=== PATIENT | female | born 1990 | race Caucasian/White ===

== ENCOUNTER 2016-10-23 10:29 | Emergency (ER) | payer SELFPAY ==
[~2016-10-23] VITALS: Ht 175.3 cm; Wt 79.5 kg
[2016-10-23 10:31] VITALS: BP 140/80; PULSE 94; RESP 20; TEMP 98.5; O2SAT 98
--- NOTE | 2016-10-23 11:11 | PD ---
HPI . left axilla abscess x 1 day Chief Complaint: left axilla abscess Time Seen by Provider: 11:11 Travel History International Travel<30 days: No Contact w/Intl Traveler<30days: No Traveled to known affect area: No History of Present Illness HPI 26-year-old female with history of IV drug user now in rehabilitation here with complaints of left axilla swelling. Patient tells me that all of a sudden yesterday she started developing some swelling under her left axilla. It is very tender to touch and red. She has a history of abscesses in the past and tells me that she had prior MRSA infection. She denies any fever or chills. She also has some small bumps starting to form in her right axilla. They're not as significant as the large lump in her left axilla. She denies any fever or chills. She has no other complaints. PFSH Past Medical History Respiratory: Yes (CIGARETTE SMOKER. 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) LMP: 2016 Social History Tobacco Use: Yes Allergies-Medications (Allergen,Severity, Reaction): Coded Allergies: No Known Allergies (Unverified , 10/23/16) Reported Meds & Prescriptions Reported Meds & Active Scripts Active Bactrim DS (Sulfamethoxazole-Trimethoprim) 800-160 Mg Tab 1 Tab PO BID Reported Paxil (Paroxetine HCl) 40 Mg Tab 40 Mg PO DAILY Wellbutrin Xl 24 HR (Bupropion HCl) 150 Mg Tab 150 Mg PO DAILY Review of Systems General / Constitutional: No: Fever Eyes: No: Visual changes HENT: No: Headaches Cardiovascular: No: Chest Pain or Discomfort Respiratory: No: Shortness of Breath Gastrointestinal: No: Abdominal Pain Genitourinary: No: Dysuria Musculoskeletal: No: Pain Skin: Positive Other (left axilla abscess), No Rash Neurologic: No: Weakness Psychiatric: No: Depression Endocrine: No: Polydipsia Hematologic/Lymphatic: No: Easy Bruising Physical Exam Narrative GENERAL: AAO x 3, no acute distress, Well-nourished, well-developed patient. SKIN: Warm and dry. No visible rashes or bruising. Left axilla with a large 4-1 /2 cm abscess with induration and fluctuance. Very minimal zone of inflammation. Right axilla with 2 small pustules. HEAD: Normocephalic and atraumatic. EYES: No scleral icterus. No injection or drainage. ENT: No nasal drainage noted. Mucous membranes pink. Airway patent. NECK: Supple, trachea midline. No JVD. CARDIOVASCULAR: Regular rate and rhythm without murmurs, gallops, or rubs. RESPIRATORY: Breath sounds equal bilaterally. No accessory muscle use. No rhonchi or rales. GASTROINTESTINAL: Abdomen soft, non-tender, nondistended. EXTREMITIES: No cyanosis or edema. BACK: Nontender without obvious deformity. No CVA tenderness. PSYCH: AAO x 3, normal affect. Data Data Last Documented VS Vital Signs Date Time Temp Pulse Resp B/P Pulse Ox O2 Delivery O2 Flow Rate FiO2 10/23/16 10:31 98.5 94 20 140/80 98 Room Air Orders Wound Culture And Gram Stain (10/23/16 11:15) Lidocaine 1% Inj (50 Ml) (Xylocaine 1% I (10/23/16 11:15) Change Dressing (10/23/16 11:29) MDM Medical Decision Making Medical Screen Exam Complete: Yes Emergency Medical Condition: Yes Medical Record Reviewed: Yes Differential Diagnosis axilla abscess, cellulitis, hidradenitis suppurative Narrative Course 26-year-old female with history of IV drug user now in rehabilitation here with complaints of left axilla swelling. Patient tells me that all of a sudden yesterday she started developing some swelling under her left axilla. It is very tender to touch and red. She has a history of abscesses in the past and tells me that she had prior MRSA infection. She denies any fever or chills. She also has some small bumps starting to form in her right axilla. They're not as significant as the large lump in her left axilla. She denies any fever or chills. She has no other complaints. Patient seen and examined she does have a large left axilla abscess that requires incision and drainage. Patient consented to the procedure. Procedure performed & patient tolerated without incident. Approximately 3 ml of purulent matter expressed. Bactrim provided upon discharge for MRSA coverage. Patient advised to follow-up in 48 hours for recheck. She was advised to return to emergency department if her symptoms return or worsen. Patient verbalized understanding of instructions, questions were answered, and thanked me for their care. I advised them if their condition worsens, please return to the nearest emergency room for further care. Procedures Procedure Narrative After the risks and benefits were discussed the following procedure was performed: INCISION AND DRAINAGE OF ABSCESS: The area was prepped and was sterilely draped. A subcutaneous wheal of 1% % Xylocaine with a total number 5 mL was used to anesthetize the area. The area was properly anesthetized. A number 11 scalpel was used to make a 1-cm incision across the area of the abscess. Cultures were obtained. Loculations were broken up. The abscess was drained an irrigated with normal saline. Quarter inch iodoform packing was placed in the wound. Sterile dressing applied. Patient advised to have packing removed in two days. Diagnosis Primary Impression: Abscess of left axilla Patient Instructions: General Instructions Additional Instructions: Rest, hydrate. Do not change the dressing unless it becomes wet or soiled until wound recheck in 48 hours. You may bathe normally. Do not submerge the wound. Take the antibiotics as they are prescribed, even if your symptoms resolve during the course of treatment. Utilize [id number] pain medications, as described on the label, as needed. Return to the ED in 48 hours for packing removal and wound recheck. Follow-up with your primary care provider in next week. Return to the ED for any urgent or emergent medical condition. [place] for worsening signs of infection which include increased redness, increased warmth, purulent drainage, increased swelling or streaking. If any of these appear, please return to the nearest emergency department. Med/Other Pt SpecificInfo: Prescription(s) given Scripts Sulfamethoxazole-Trimethoprim (Bactrim DS)800-160 Mg Tab1 Tab PO BID #20 TAB Prov:Makenna Morales DO 10/23/16 Disposition: 01 DISCHARGE HOME Condition: Stable Jessica Monte Oct 23, 2016 11:11
[2016-10-23] MEDS ORDERED: PAXI40TA PO (11:14)
[2016-10-23] MEDS ORDERED: BUPR150XL PO (11:14)
[2016-10-23] MEDS ORDERED: LIDOCAINE HCL 1% 50 ML VIAL INFIL ONE (11:15)
[2016-10-23] MEDS ORDERED: BACT800T5 PO (11:30)
== END 2016-10-23 11:54 | disposition home or self-care (01) ==
LOC: NEPK 10:29
DX: L02.412 Cutaneous abscess of left axilla (principal); F17.201 Nicotine dependence, unspecified, in remission; F14.21 Cocaine dependence, in remission; F15.21 Other stimulant dependence, in remission; Z72.0 Tobacco use
CPT/HCPCS: 10061; 86403; 87070; 87186

== ENCOUNTER 2016-10-25 10:26 | Emergency (ER) | payer SELFPAY ==
[~2016-10-25] VITALS: Ht 175.3 cm; Wt 79.5 kg
[~2016-10-25 10:26] MED LIST: BACT800T5 PO; BUPR150XL PO; PAXI40TA PO
[2016-10-25 10:27] VITALS: BP 134/92; PULSE 89; RESP 17; TEMP 98.6; O2SAT 99
--- NOTE | 2016-10-25 10:32 | PD ---
HPI . left axilla abscess recheck Chief Complaint: Wound/Suture/Staple Re-Check Time Seen by Provider: 10:31 Travel History International Travel<30 days: No Contact w/Intl Traveler<30days: No Traveled to known affect area: No History of Present Illness HPI 26-year-old female who was seen by me a few days ago for left axilla abscess status post incision and drainage here for recheck and to have her packing removed. Patient says she's been doing much better since the initial visit. The pain is significantly improved. She denies any worsening of the site. The swelling has gone down. There has been some drainage present, but she denies any spreading of infection. She has no complaints. She denies any fever or chills. She is taking her antibiotics as prescribed. She is accompanied by her best friend. PFSH Past Medical History Respiratory: Yes (CIGARETTE SMOKER. 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) Social History Tobacco Use: Yes Allergies-Medications (Allergen,Severity, Reaction): Coded Allergies: *MDRO Multi-Drug Resistant Organism (Verified Adverse Reaction, Unknown, ) MRSA (axilla)-10/23/16 Reported Meds & Prescriptions Reported Meds & Active Scripts Active Bactrim DS (Sulfamethoxazole-Trimethoprim) 800-160 Mg Tab 1 Tab PO BID Reported Paxil (Paroxetine HCl) 40 Mg Tab 40 Mg PO DAILY Wellbutrin Xl 24 HR (Bupropion HCl) 150 Mg Tab 150 Mg PO DAILY Review of Systems General / Constitutional: No: Fever Eyes: No: Visual changes HENT: No: Headaches Cardiovascular: No: Chest Pain or Discomfort Respiratory: No: Shortness of Breath Gastrointestinal: No: Abdominal Pain Genitourinary: No: Dysuria Musculoskeletal: No: Pain Skin: Positive Other (left axilla abscess), No Rash Neurologic: No: Weakness Psychiatric: No: Depression Endocrine: No: Polydipsia Hematologic/Lymphatic: No: Easy Bruising Physical Exam Narrative GENERAL: AAO x 3, no acute distress, Well-nourished, well-developed patient. SKIN: Warm and dry. No visible rashes or bruising. Left axilla abscess significantly improve. There is some induration still present, but is significantly improve. It's about 2 cm, firm without any fluctuance. There is drainage present on the packing once it was removed. About 0.2 cc of purulence removed. Area was cleaned with saline and packing was replaced. HEAD: Normocephalic and atraumatic. EYES: No scleral icterus. No injection or drainage. ENT: No nasal drainage noted. Mucous membranes pink. Airway patent. NECK: Supple, trachea midline. No JVD. CARDIOVASCULAR: Regular rate and rhythm without murmurs, gallops, or rubs. RESPIRATORY: Breath sounds equal bilaterally. No accessory muscle use. No rhonchi or rales. GASTROINTESTINAL: Abdomen soft, non-tender, nondistended. EXTREMITIES: No cyanosis or edema. BACK: Nontender without obvious deformity. No CVA tenderness. PSYCH: AAO x 3, normal affect. Data Data Last Documented VS Vital Signs Date Time Temp Pulse Resp B/P Pulse Ox O2 Delivery O2 Flow Rate FiO2 10/25/16 10:27 98.6 89 17 134/92 99 MDM Medical Decision Making Medical Screen Exam Complete: Yes Emergency Medical Condition: Yes Medical Record Reviewed: Yes (left axilla abscess) Differential Diagnosis Left axilla abscess, saline as, less likely sepsis Narrative Course 26-year-old female who was seen by me a few days ago for left axilla abscess status post incision and drainage here for recheck and to have her packing removed. Patient says she's been doing much better since the initial visit. The pain is significantly improved. She denies any worsening of the site. The swelling has gone down. There has been some drainage present, but she denies any spreading of infection. She has no complaints. She denies any fever or chills. She is taking her antibiotics as prescribed. She is accompanied by her best friend. Seen and examined. Her left axilla abscess is significantly improve I have removed the packing and replaced it. Patient will follow up in another 48 hours for recheck. She will continue to use her antibiotics. She's been advised to return for any signs of worsening infection. Patient verbalized understanding of instructions, questions were answered, and thanked me for their care. I advised them if their condition worsens, please return to the nearest emergency room for further care. Procedures Procedure Narrative Packing removal Packing was removed. Area was cleaned with saline. Quarter inch iodoform was replaced. Patient tolerated without incident. Clean sterile gauze was applied over the abscess. Diagnosis Primary Impression: Abscess of left axilla Patient Instructions: Acute Wound Care (ED), General Instructions Additional Instructions: Rest, hydrate. You may bathe normally. Do not submerge the wound. Take the antibiotics as they are prescribed, even if your symptoms resolve during the course of treatment. Utilize [id number] pain medications, as described on the label, as needed. Return to the ED in 48 hours for packing removal and wound recheck. Follow-up with your primary care provider in next week. Return to the ED for any urgent or emergent medical condition. Med/Other Pt SpecificInfo: No Change to Meds Disposition: 01 DISCHARGE HOME Condition: Stable Jessica Monte Oct 25, 2016 10:32
== END 2016-10-25 10:54 | disposition home or self-care (01) ==
LOC: NEPK 10:26
DX: L02.412 Cutaneous abscess of left axilla (principal)
CPT/HCPCS: 99281